=== PATIENT | female | born 1975 | race African-American/Black ===

== ENCOUNTER 2017-08-06 11:07 | Inpatient (IN) | payer OTHER ==
[2017-08-06 13:37] VITALS: BMI 25.0
--- NOTE | 2017-08-06 15:20 | HP ---
COWS - Scale Resting Pulse: 0= [place] 80 or Below Sweatin= Chills/Flushing Restless Observation: 1= Difficult to Sit Still Pupil Size: 0= Normal to Room Light Bone or Joint Aches: 2= Severe Diffuse Aches Runny Nose/ Eye Tearin= Runny Nose/Eyes GI Upset > 30mins: 3= Vomiting/Diarrhea Tremor Observation: 0= None Yawning Observation: 1= 1-2x During Session Anxiety or Irritability: 2=Irritable/Anxious Goose Flesh Skin: 0=Smooth Skin COWS Score: 12 CIWA Score - CIWA Score Nausea/Vomitin Muscle Tremors: 2 Anxiety: 3 Agitation: 2 Paroxysmal Sweats: 3 Orientation: 0-Oriented Tacttile Disturbances: 0-None Auditory Disturbances: 0-None Visual Disturbances: 0-None Headache: 0-None Present CIWA-Ar Total Score: 15 Admission ROS BHS - HPI Chief Complaint: "I need to get better." Patient is here to Detox from Heroin and Alcohol. Allergies/Adverse Reactions: Allergies Allergy/AdvReac Type Severity Reaction Status Date / Time No Known Allergies Allergy Verified 08/06/17 14:56 History of Present Illness: Patient is a 42 YO female here to detox from Heroin and Alcohol. This is patient 's first detox admission at [facility]. Patient had A Detox admission at [facility] ([place] , [place] in 05/2017. Longest period of sobriety non-drug use in recent years: approx. 2 years (2014 - 2016). Exam Limitations: No Limitations - Ebola screening Have you traveled outside of the country in the last 21 days: No (N) Have you had contact with anyone from an Ebola affected area: No Have you been sick,other than usual withdrawal symptoms: No Do you have a fever: No - Review of Systems Constitutional: Chills, Diaphoresis, Fever, Loss of Appetite, Malaise, Night Sweats, Changes in sleep, Unintentional Wgt. Loss (Lost approx. 20 lbs. over last two months.) EENT: reports: No Symptoms Reported Respiratory: reports: No Symptoms reported Cardiac: reports: No Symptoms Reported GI: reports: Diarrhea, Nausea, Poor Appetite, Vomiting, Indigestion : reports: No Symptoms Reported Musculoskeletal: reports: Back Pain Integumentary: reports: No Symptoms Reported Neuro: reports: Tremors Endocrine: reports: No Symptoms Reported Hematology: reports: No Symptoms Reported Psychiatric: reports: Judgement Intact, Mood/Affect Appropiate, Orientated x3, Anxious, Depressed (No Previous Treatment.) Other Systems: Reviewed and Negative Patient History - Patient Medical History Hx Anemia: No Hx Asthma: No Hx Chronic Obstructive Pulmonary Disease (COPD): No Hx Cancer: No Hx Cardiac Disorders: No Hx Congestive Heart Failure: No Hx Hypertension: No Hx Hypercholesterolemia: No Hx Pacemaker: No HX Cerebrovascular Accident: No Hx Seizures: No Hx Dementia: No Hx Diabetes: No Hx Gastrointestinal Disorders: Yes (acid reflux) Hx Liver Disease: No Hx Genitourinary Disorders: No Hx Sexually Transmitted Disorders: No Hx Renal Disease (ESRD): No Hx Thyroid Disease: No Hx Human Immunodeficiency Virus (HIV): Yes (Diagnosed 2006; No meds.) Hx Hepatitis C: Yes (Completed Treatment 2015 (unable to recall name of medication).) Hx Depression: Yes (No Previous treatment.) Hx Suicide Attempt: Yes (pill overdose at age 37; PATIENT DENIES CURRENT SI / HI.) Hx Bipolar Disorder: No Hx Schizophrenia: No Other Medical History: DENIES. - Patient Surgical History Past Surgical History: Yes Hx Neurologic Surgery: No Hx Cataract Extraction: No Hx Cardiac Surgery: No Hx Lung Surgery: No Hx Breast Surgery: No Hx Breast Biopsy: No Hx Abdominal Surgery: No Hx Appendectomy: No Hx Cholecystectomy: No Hx Genitourinary Surgery: No Hx Section: Yes (x2 (1991, 1994).) Hx Orthopedic Surgery: No Hx Hysterectomy: No Other Surgical History: DENIES. Anesthesia Reaction: No - PPD History Previous Implant?: Yes Documented Results: Negative w/o proof Implanted On Prior [facility] Admission?: No PPD to be Administered?: Yes - Reproductive History Patient is a Female of Child Bearing Age (11 -55 yrs old): Yes Last Menstrual Period: 07/03/17 Patient : No - Smoking Cessation Smoking history: Current every day smoker Have you smoked in the past 12 months: Yes Aproximately how many cigarettes per day: 8 Cigars Per Day: 0 Hx Chewing Tobacco Use: No Initiated information on smoking cessation: Yes 'Breaking Loose' booklet given: 08/06/17 (GIVEN TO PATIENT.) - Substance & Tx. History Hx Alcohol Use: Yes Hx Substance Use: Yes Substance Use Type: Alcohol, Cocaine, Heroin Hx Substance Use Treatment: Yes (Previous Detox admssion at [facility] (05/2017).) - Substances Abused Heroin Route: Injection Frequency: Daily Amount used: 5 bags Age of first use: 16 Date of Last Use: 08/06/17 Crack Route: Smoking Frequency: 1-2 times per week Amount used: $100 Age of first use: 12 Date of Last Use: 08/04/17 Alcohol-vodka/beer Route: Oral Frequency: Daily Amount used: 1 pt./2-6 pks. Age of first use: 12 Date of Last Use: 08/05/17 Family Disease History - Family Disease History Family Disease History: Other: Father (, AIDS.), Mother (, AIDS. ) Admission Physical Exam [facility] - Vital Signs Vital Signs: Vital Signs - 24 hr 08/06/17 13:35 Temperature 97.2 F L Pulse Rate 73 Respiratory 20 Rate Blood Pressure 100/60 - Physical General Appearance: Yes: No Apparent Distress, Nourished, Appropriately Dressed , Tremorous, Anxious HEENTM: Yes: Hearing grossly Normal, Normocephalic, Normal Voice, FAR[place]A, Pharynx Normal Respiratory: Yes: Chest Non-Tender, Lungs Clear, No Respiratory Distress, No Accessory Muscle Use Neck: Yes: No masses,lesions,Nodules, Supple, Trachea in good position Breast: Yes: Breast Exam Deferred Cardiology: Yes: Regular Rhythm, Regular Rate, S1, S2 Abdominal: Yes: Normal Bowel Sounds, Non Tender, Flat, Soft Genitourinary: Yes: Within Normal Limits Back: Yes: Decreased Range of Motion Musculoskeletal: Yes: Gait Steady, Back pain Extremities: Yes: Normal Capillary Refill, Normal Range of Motion, Non-Tender, Tremors Neurological: Yes: Fully Oriented, Alert, Normal Mood/Affect, Normal Response Integumentary: Yes: Normal Color, Dry, Warm, Track [place] (Noted on Left Forearm. No signs of infection noted.) Lymphatic: Yes: Within Normal Limits - Diagnostic (1) Opioid dependence with withdrawal Current Visit: Yes Status: Acute (2) Alcohol dependence with uncomplicated withdrawal Current Visit: Yes Status: Acute (3) Cocaine dependence, uncomplicated Current Visit: Yes Status: Acute (4) Nicotine dependence Current Visit: Yes Status: Chronic Qualifiers: Nicotine product type: cigarettes Substance use status: uncomplicated Qualified Code(s): F17.210 - Nicotine dependence, cigarettes, uncomplicated (5) Acid reflux Current Visit: Yes Status: Chronic Qualifiers: Esophagitis presence: esophagitis presence not specified Qualified Code(s) : K21.9 - Gastro-esophageal reflux disease without esophagitis (6) HIV (human immunodeficiency virus infection) Current Visit: Yes Status: Chronic (7) Hepatitis C Current Visit: Yes Status: Resolved Qualifiers: Viral hepatitis chronicity: chronic Hepatic coma status: without hepatic coma Qualified Code(s): B18.2 - Chronic viral hepatitis C Comment: Completed Treatment: 2016. (8) Difficulty sleeping Current Visit: Yes Status: Chronic Cleared for Admission [facility] - Detox or Rehab [facility] Level of Care: Medically Managed Detox Regimen/Protocol: Methadone/Librium [facility] Breath Alcohol Content Breath Alcohol Content: 0 Urine Pregancy Test - Result Urine Test Results: Negative- NO Line Present Urine Drug Screen - Results Drug Screen Negative: No Urine Drug Screen Results: GHULAM-Cocaine, OPI-Opiates, BZO-Benzodiazepines, MTD- Methadone, OXY-Oxycodone
[2017-08-06] MEDS ORDERED: NICOTINE POLACRILEX 2 MG GUM BC PRN (15:44)
[2017-08-06] MEDS ORDERED: chlordiazePOXIDE HCL 25 MG CAPSULE PO ONE (15:44)
[2017-08-06] MEDS ORDERED: P-EPHED 60MG/TRIPROLIDI 2.5MG TABLET PO PRN (15:44)
[2017-08-06] MEDS ORDERED: MAGNESIUM HYDROX 2400MG/30ML ORAL SUSPENSION 30 ML CUP PO PRN (15:44)
[2017-08-06] MEDS ORDERED: MENTHOL/PHENOL 1 EACH UD MM PRN (15:44)
[2017-08-06] MEDS ORDERED: LOPERAMIDE HCL 2 MG CAPSULE PO PRN (15:44)
[2017-08-06] MEDS ORDERED: IBUPROFEN 400 MG TABLET (FP) PO PRN (15:44)
[2017-08-06] MEDS ORDERED: guaiFENesin/D-METHORPHAN HB 10 ML UNIT-DOSE CUPS PO PRN (15:44)
[2017-08-06] MEDS ORDERED: MAG HYDROX/AL HYDROX/SIMETH 30 ML UNIT-DOSE CUP PO PRN (15:44)
[2017-08-06] MEDS ORDERED: MAGNESIUM CITRATE 300 ML BOTTLE PO PRN (15:44)
[2017-08-06] MEDS ORDERED: chlordiazePOXIDE HCL 25 MG CAPSULE PO PRN (15:44)
[2017-08-06] MEDS ORDERED: METHADONE HCL 10 MG TABLET (FOR DETOX USE ONLY) PO ONE ×2 (17:15→23:00)
[2017-08-06] MEDS: chlordiazePOXIDE HCL 25 MG CAPSULE PO SCH ×2 (18:15→22:08)
[2017-08-06] MEDS: NICOTINE 14 MG/24 HOURS TOPICAL PATCH TD SCH (18:16)
[2017-08-06 21:37] LABS: URINE APPEARANCE CLOUDY; URINE BILIRUBIN NEGATIVE (<2.0 mg/dL); URINE BLOOD NEGATIVE (NEGATIVE); URINE COLOR AMBER; URINE GLUCOSE (UA) NEGATIVE (NEGATIVE); URINE KETONE NEGATIVE (NEGATIVE); URINE LEUK ESTERASE NEGATIVE (NEGATIVE); URINE NITRITE NEGATIVE (NEGATIVE); URINE PROTEIN NEGATIVE (NEGATIVE)
[2017-08-06] MEDS: THIAMINE HCL 100 MG TABLET (FP) PO SCH (22:08)
[2017-08-06] MEDS: MELATONIN 5 MG TABLETS PO PRN (22:10)
[2017-08-07] MEDS: chlordiazePOXIDE HCL 25 MG CAPSULE PO SCH ×4 (06:09→22:14)
[2017-08-07] MEDS ORDERED: METHADONE HCL 10 MG TABLET (FOR DETOX USE ONLY) PO SCH (10:00)
[2017-08-07] MEDS: PRENATAL VITAMINS W/ FOLIC ACID TABLET (FP) PO SCH (10:04)
[2017-08-07] MEDS: NICOTINE 14 MG/24 HOURS TOPICAL PATCH TD SCH (10:04)
[2017-08-07 10:40] LABS: ALBUMIN 2.8 g/dl (3.4-5.0); ANION GAP 5 (8-16); BLOOD UREA NITROGEN 6 mg/dL (7-18); CALCIUM 8.3 mg/dL (8.5-10.1); CHLORIDE 111 mmol/L (98-107); CO2 25 mmol/L (21-32); GLUCOSE,RANDOM 94 mg/dL (74-106); HEMATOCRIT 39.3 % (32.4-45.2); HEMOGLOBIN 12.9 GM/dL (10.7-15.3); MCH 31.5 pg (25.7-33.7); MCHC 32.9 g/dl (32.0-36.0); MEAN CELL VOLUME 95.7 fl (80-96); MEAN PLT VOLUME 8.9 fl (7.5-11.1); PLATELET COUNT 163 K/MM3 (134-434); POTASSIUM 3.5 mmol/L (3.5-5.1); RBC 4.11 M/mm3 (3.60-5.2); RDW 16.6 % (11.6-15.6); SODIUM 141 mmol/L (136-145); WHITE BLOOD COUNT 3.4 K/mm3 (4.0-10.0)
[2017-08-07 10:44] LABS: ALK PHOS 78 U/L (45-117); BILIRUBIN,TOTAL 0.5 mg/dL (0.2-1.0); CREATININE 0.8 mg/dL (0.55-1.02); SGOT/AST 15 U/L (15-37); SGPT/ALT 10 U/L (12-78); TOT PROT 6.4 g/dl (6.4-8.2)
--- NOTE | 2017-08-07 11:33 | CONSULT ---
[facility] Psychiatric Consult - Data Date of interview: 08/07/17 Admission source: [facility] Identifying data: Pt. is a 42 year old single female, mother of two, unemployed , living alone and is receiving financial assistance. This is one of multiple admissions for patient. Pt. admitted to for alcohol, cocaine, and opiate dependence. Substance Abuse History: Following information confirmed with Mr. Alonso: Smoking Cessation. Smoking history: Current every day smoker. Have you smoked in the past 12 months: Yes. Aproximately how many cigarettes per day: 8. Cigars Per Day: 0. Hx Chewing Tobacco Use: No. Initiated information on smoking cessation: Yes. 'Breaking Loose' booklet given: 08/06/17 (GIVEN TO PATIENT.). - Substance & Tx. History. Hx Alcohol Use: Yes. Hx Substance Use: Yes. Substance Use Type: Alcohol, Cocaine, Heroin. Hx Substance Use Treatment : Yes (Previous Detox admssion at [facility] (05/2017).). - Substances Abused. Heroin. Route: Injection. Frequency: Daily. Amount used: 5 bags. Age of first use: 16. Date of Last Use: 08/06/17. Crack. Route: Smoking. Frequency: 1-2 times per week. Amount used: $100. Age of first use: 12. Date of Last Use: 08/04/17. Alcohol-vodka/beer. Route: Oral. Frequency: Daily. Amount used: 1 pt./2-6 pks. Age of first use: 12. Date of Last Use: 08/05/17 Medical History: HIV Psychiatric History: Pt. presents as guarded and is not fourthcoming with information. Pt. reports multiple psychiatric hospitalizations, most recently five years ago at [facility]. Reports last seeing an outpatient psychiatrist one year ago (unable to recall location or clinic's name).Pt. reports a diagnosis of bipolar disorder and depression. States she has been prescribed mirtzapine (unaware of dose) and risperdal 3mg. As per pharmacy claims patient received a prescription of risperdal 3mg + Mirtzapine 45mg + wellbutrin 100mg on 08/03/17. Pt. reports nonadherence to medications and outpatient care. Pt. reports one suicide attempt five years via overdose. Pt. currently denies suicidal and homicidal ideation. Physical/Sexual Abuse/Trauma History: Denies. Mental Status Exam - Mental Status Exam Alert and Oriented to: Time, Place, Person Cognitive Function: Good Patient Appearance: Well Groomed Mood: Euthymic Affect: Mood Congruent Patient Behavior: Guarded, Cooperative Speech Pattern: Delayed Voice Loudness: Normal Thought Process: Goal Oriented Thought Disorder: Not Present Hallucinations: Denies Suicidal Ideation: Denies Homicidal Ideation: Denies Insight/Judgement: Poor Sleep: Fair Appetite: Fair Muscle strength/Tone: Normal Gait/Station: Normal Psychiatric Findings - Problem List ([place] 1, 2,3) (1) Alcohol dependence with uncomplicated withdrawal Current Visit: Yes Status: Acute (2) Cocaine dependence, uncomplicated Current Visit: Yes Status: Acute (3) Opioid dependence with withdrawal Current Visit: Yes Status: Acute (4) Nicotine dependence Current Visit: Yes Status: Chronic Qualifiers: Nicotine product type: cigarettes Substance use status: uncomplicated Qualified Code(s): F17.210 - Nicotine dependence, cigarettes, uncomplicated (5) Bipolar disorder Current Visit: Yes Status: Chronic Comment: History. (6) Substance induced mood disorder Current Visit: Yes Status: Acute - Initial Treatment Plan Initial Treatment Plan: Psychoeducation provided. Detoxification provided. Pt. agreeable to restarting risperdal + Mirtzapine. Risperdal 1mg BID + Mirtazapine 15mg qhs ordered. Benefits and side effects discussed. Verbal consent given. Will continue to monitor.
--- NOTE | 2017-08-07 15:37 | PN ---
S CIWA - CIWA Score Nausea/Vomitin Muscle Tremors: 3 Anxiety: 3 Agitation: 3 Paroxysmal Sweats: 1-Minimal Palms Moist Orientation: 0-Oriented Tacttile Disturbances: 1-Very Mild Itch/Numbness Auditory Disturbances: 1-Very Mild Visual Disturbances: 0-None Headache: 2-Mild CIWA-Ar Total Score: 17 BHS COWS - Scale Resting Pulse: 0= [place] 80 or Below Sweatin= Chills/Flushing Restless Observation: 3= Extraneous Movement Pupil Size: 1= Pupils >than Normal Bone or Joint Aches: 2= Severe Diffuse Aches Runny Nose/ Eye Tearin= Runny Nose/Eyes GI Upset > 30mins: 2= Nausea/Diarrhea Tremor Observation of Outstretched Hands: 2= Slight Tremor Visible Yawning Observation: 2= >3x During Session Anxiety or Irritability: 2=Irritable/Anxious Goose Flesh Skin: 0=Smooth Skin COWS Score: 17 S Progress Note (SOAP) Subjective: ALERT,IRRITABLE,ANXIOUS,INTERRUPTED SLEP,TREMOR,PAIN IN THE BODY AND BACK Objective: 08/07/17 15:35 Vital Signs Temperature 98.6 F 08/07/17 11:09 Pulse Rate 74 08/07/17 11:09 Respiratory Rate 18 08/07/17 11:09 Blood Pressure 119/75 08/07/17 11:09 O2 Sat by Pulse Oximetry (%) 08/07/17 15:36 Laboratory Last Values WBC 3.4 K/mm3 (4.0-10.0) L 08/07/17 07:50 RBC 4.11 M/mm3 (3.60-5.2) 08/07/17 07:50 Hgb 12.9 GM/dL (10.7-15.3) 08/07/17 07:50 Hct 39.3 % (32.4-45.2) 08/07/17 07:50 MCV 95.7 fl (80-96) 08/07/17 07:50 MCH 31.5 pg (25.7-33.7) 08/07/17 07:50 MCHC 32.9 g/dl (32.0-36.0) 08/07/17 07:50 RDW 16.6 % (11.6-15.6) H 08/07/17 07:50 Plt Count 163 K/MM3 (134-434) 08/07/17 07:50 MPV 8.9 fl (7.5-11.1) 08/07/17 07:50 Sodium 141 mmol/L (136-145) 08/07/17 07:50 Potassium 3.5 mmol/L (3.5-5.1) 08/07/17 07:50 Chloride 111 mmol/L (98-107) H 08/07/17 07:50 Carbon Dioxide 25 mmol/L (21-32) 08/07/17 07:50 Anion Gap 5 (8-16) L 08/07/17 07:50 BUN 6 mg/dL (7-18) L 08/07/17 07:50 Creatinine 0.8 mg/dL (0.55-1.02) 08/07/17 07:50 Creat Clearance w eGFR > 60 (>60) 08/07/17 07:50 Random Glucose 94 mg/dL (74-106) 08/07/17 07:50 Calcium 8.3 mg/dL (8.5-10.1) L 08/07/17 07:50 Total Bilirubin 0.5 mg/dL (0.2-1.0) 08/07/17 07:50 AST 15 U/L (15-37) 08/07/17 07:50 ALT 10 U/L (12-78) L 08/07/17 07:50 Alkaline Phosphatase 78 U/L (45-117) 08/07/17 07:50 Total Protein 6.4 g/dl (6.4-8.2) 08/07/17 07:50 Albumin 2.8 g/dl (3.4-5.0) L 08/07/17 07:50 Urine Color Tere 08/06/17 18:40 Urine Appearance Cloudy 08/06/17 18:40 Urine pH 5.0 (5.0-8.0) 08/06/17 18:40 Ur Specific [place] 1.019 (1.001-1.035) 08/06/17 18:40 Urine Protein Negative (NEGATIVE) 08/06/17 18:40 Urine Glucose (UA) Negative (NEGATIVE) 08/06/17 18:40 Urine Ketones Negative (NEGATIVE) 08/06/17 18:40 Urine Blood Negative (NEGATIVE) 08/06/17 18:40 Urine Nitrite Negative (NEGATIVE) 08/06/17 18:40 Urine Bilirubin Negative (<2.0 mg/dL) 08/06/17 18:40 Urine Urobilinogen 2.0 mg/dL (0.2-1.0) H 08/06/17 18:40 Ur Leukocyte Esterase Negative (NEGATIVE) 08/06/17 18:40 RPR Titer Nonreactive (NONREACTIVE) 08/07/17 07:50 Assessment: 08/07/17 15:35 Vital Signs Temperature 98.6 F 08/07/17 11:09 Pulse Rate 74 08/07/17 11:09 Respiratory Rate 18 08/07/17 11:09 Blood Pressure 119/75 08/07/17 11:09 O2 Sat by Pulse Oximetry (%) EKG NSR NO CHEST PAIN,NO SOB,NO DIZZINESS 08/07/17 15:36 WITHDRAWAL SYMPTOM Plan: CONTINUE DETOX
[2017-08-07] MEDS: THIAMINE HCL 100 MG TABLET (FP) PO SCH (22:14)
[2017-08-07] MEDS: MIRTAZAPINE 15 MG TABLET (FP) PO SCH (22:14)
[2017-08-07] MEDS: risperiDONE 1 MG TABLET (FP) PO SCH (22:14)
[2017-08-07] MEDS: MELATONIN 5 MG TABLETS PO PRN (22:15)
[2017-08-07] MEDS: ACETAMINOPHEN 325 MG TABLET (FP) PO PRN (22:42)
[2017-08-08] MEDS: chlordiazePOXIDE HCL 25 MG CAPSULE PO SCH ×2 (05:52→10:59)
[2017-08-08] MEDS: ACETAMINOPHEN 325 MG TABLET (FP) PO PRN (05:53)
[2017-08-08] MEDS: NICOTINE 14 MG/24 HOURS TOPICAL PATCH TD SCH (10:59)
[2017-08-08] MEDS: PRENATAL VITAMINS W/ FOLIC ACID TABLET (FP) PO SCH (11:00)
[2017-08-08] MEDS: METHADONE HCL 5 MG TABLET (FOR DETOX USE ONLY) PO SCH (11:00)
[2017-08-08] MEDS: risperiDONE 1 MG TABLET (FP) PO SCH ×2 (11:00→22:26)
--- NOTE | 2017-08-08 12:33 | PN ---
[facility] CIWA - CIWA Score Nausea/Vomitin-Mild Nausea/No Vomiting Muscle Tremors: 4-Moderate,w/Arms Extend Anxiety: 3 Agitation: 3 Paroxysmal Sweats: 1-Minimal Palms Moist Orientation: 0-Oriented Tacttile Disturbances: 1-Very Mild Itch/Numbness Auditory Disturbances: 0-None Visual Disturbances: 0-None Headache: 1-Very Mild CIWA-Ar Total Score: 14 BHS COWS - Scale Resting Pulse: 0= [place] 80 or Below Sweatin= Chills/Flushing Restless Observation: 1= Difficult to Sit Still Pupil Size: 0= Normal to Room Light Bone or Joint Aches: 2= Severe Diffuse Aches Runny Nose/ Eye Tearin= Nasal Congestion GI Upset > 30mins: 2= Nausea/Diarrhea Tremor Observation of Outstretched Hands: 2= Slight Tremor Visible Yawning Observation: 2= >3x During Session Anxiety or Irritability: 2=Irritable/Anxious Goose Flesh Skin: 0=Smooth Skin COWS Score: 13 S Progress Note (SOAP) Subjective: sweat tremor restlessness body ache joint pain trouble sleeping mild gi distress Objective: 08/08/17 12:32 Vital Signs Temperature 98.1 F 08/08/17 12:13 Pulse Rate 77 08/08/17 12:13 Respiratory Rate 20 08/08/17 12:13 Blood Pressure 112/79 08/08/17 12:13 O2 Sat by Pulse Oximetry (%) Laboratory Last Values WBC 3.4 K/mm3 (4.0-10.0) L 08/07/17 07:50 RBC 4.11 M/mm3 (3.60-5.2) 08/07/17 07:50 Hgb 12.9 GM/dL (10.7-15.3) 08/07/17 07:50 Hct 39.3 % (32.4-45.2) 08/07/17 07:50 MCV 95.7 fl (80-96) 08/07/17 07:50 MCH 31.5 pg (25.7-33.7) 08/07/17 07:50 MCHC 32.9 g/dl (32.0-36.0) 08/07/17 07:50 RDW 16.6 % (11.6-15.6) H 08/07/17 07:50 Plt Count 163 K/MM3 (134-434) 08/07/17 07:50 MPV 8.9 fl (7.5-11.1) 08/07/17 07:50 Sodium 141 mmol/L (136-145) 08/07/17 07:50 Potassium 3.5 mmol/L (3.5-5.1) 08/07/17 07:50 Chloride 111 mmol/L (98-107) H 08/07/17 07:50 Carbon Dioxide 25 mmol/L (21-32) 08/07/17 07:50 Anion Gap 5 (8-16) L 08/07/17 07:50 BUN 6 mg/dL (7-18) L 08/07/17 07:50 Creatinine 0.8 mg/dL (0.55-1.02) 08/07/17 07:50 Creat Clearance w eGFR > 60 (>60) 08/07/17 07:50 Random Glucose 94 mg/dL (74-106) 08/07/17 07:50 Calcium 8.3 mg/dL (8.5-10.1) L 08/07/17 07:50 Total Bilirubin 0.5 mg/dL (0.2-1.0) 08/07/17 07:50 AST 15 U/L (15-37) 08/07/17 07:50 ALT 10 U/L (12-78) L 08/07/17 07:50 Alkaline Phosphatase 78 U/L (45-117) 08/07/17 07:50 Total Protein 6.4 g/dl (6.4-8.2) 08/07/17 07:50 Albumin 2.8 g/dl (3.4-5.0) L 08/07/17 07:50 Urine Color Tere 08/06/17 18:40 Urine Appearance Cloudy 08/06/17 18:40 Urine pH 5.0 (5.0-8.0) 08/06/17 18:40 Ur Specific [place] 1.019 (1.001-1.035) 08/06/17 18:40 Urine Protein Negative (NEGATIVE) 08/06/17 18:40 Urine Glucose (UA) Negative (NEGATIVE) 08/06/17 18:40 Urine Ketones Negative (NEGATIVE) 08/06/17 18:40 Urine Blood Negative (NEGATIVE) 08/06/17 18:40 Urine Nitrite Negative (NEGATIVE) 08/06/17 18:40 Urine Bilirubin Negative (<2.0 mg/dL) 08/06/17 18:40 Urine Urobilinogen 2.0 mg/dL (0.2-1.0) H 08/06/17 18:40 Ur Leukocyte Esterase Negative (NEGATIVE) 08/06/17 18:40 RPR Titer Nonreactive (NONREACTIVE) 08/07/17 07:50 lab noted Assessment: 08/08/17 12:33 withdrawal sx Plan: continue detox
[2017-08-08] MEDS: chlordiazePOXIDE 5 MG CAPSULE PO SCH ×2 (17:42→22:26)
[2017-08-08] MEDS: THIAMINE HCL 100 MG TABLET (FP) PO SCH (22:25)
[2017-08-08] MEDS: MIRTAZAPINE 15 MG TABLET (FP) PO SCH (22:26)
[2017-08-09] MEDS: chlordiazePOXIDE 5 MG CAPSULE PO SCH ×2 (05:21→10:23)
[2017-08-09] MEDS: PRENATAL VITAMINS W/ FOLIC ACID TABLET (FP) PO SCH (10:22)
[2017-08-09] MEDS: METHADONE HCL 5 MG TABLET (FOR DETOX USE ONLY) PO SCH (10:23)
[2017-08-09] MEDS: risperiDONE 1 MG TABLET (FP) PO SCH ×2 (10:23→22:18)
[2017-08-09] MEDS: NICOTINE 14 MG/24 HOURS TOPICAL PATCH TD SCH (10:25)
--- NOTE | 2017-08-09 12:28 | PN ---
BHS Progress Note (SOAP) Subjective: Backache sleep disturbance nasal congestion Objective: 08/09/17 12:25 A & O x 3 Sleeping but arousable to verbal stimuli Vital Signs Temperature 97.7 F 08/09/17 10:19 Pulse Rate 80 08/09/17 10:19 Respiratory Rate 18 08/09/17 10:19 Blood Pressure 110/85 08/09/17 10:19 O2 Sat by Pulse Oximetry (%) Assessment: 08/09/17 12:27 withdrawal sx Plan: continue detox
--- NOTE | 2017-08-09 12:43 | EKG ---
Test Reason : Blood Pressure : / mmHG Vent. Rate : 075 BPM Atrial Rate : 075 BPM P-R Int : 180 ms QRS Dur : 090 ms QT Int : 422 ms P-R-T Axes : 056 035 040 degrees QTc Int : 471 ms NORMAL SINUS RHYTHM POSSIBLE LEFT ATRIAL ENLARGEMENT BORDERLINE ECG NO PREVIOUS ECGS AVAILABLE Confirmed by CHI PETER MD ([id number]) on 08/09/2017 12:43:20 PM Referred By: Confirmed By:CHI PETER MD
[2017-08-09] MEDS: chlordiazePOXIDE HCL 10 MG CAPSULE PO SCH ×2 (17:11→22:18)
[2017-08-09] MEDS: THIAMINE HCL 100 MG TABLET (FP) PO SCH (22:18)
[2017-08-09] MEDS: MIRTAZAPINE 15 MG TABLET (FP) PO SCH (22:18)
[2017-08-10] MEDS: chlordiazePOXIDE HCL 10 MG CAPSULE PO SCH ×2 (05:56→10:05)
[2017-08-10] MEDS ORDERED: METHADONE HCL 10 MG TABLET (FOR DETOX USE ONLY) PO SCH (10:00)
[2017-08-10] MEDS: NICOTINE 14 MG/24 HOURS TOPICAL PATCH TD SCH (10:05)
[2017-08-10] MEDS: risperiDONE 1 MG TABLET (FP) PO SCH ×2 (10:05→22:26)
[2017-08-10] MEDS: PRENATAL VITAMINS W/ FOLIC ACID TABLET (FP) PO SCH (10:05)
--- NOTE | 2017-08-10 12:05 | PN ---
BHS Progress Note (SOAP) Subjective: feeling better no tremor less sweat no gi distress Objective: 08/10/17 12:04 Vital Signs Temperature 97.7 F 08/10/17 10:19 Pulse Rate 87 08/10/17 10:19 Respiratory Rate 16 08/10/17 10:19 Blood Pressure 121/74 08/10/17 10:19 O2 Sat by Pulse Oximetry (%) Laboratory Last Values WBC 3.4 K/mm3 (4.0-10.0) L 08/07/17 07:50 RBC 4.11 M/mm3 (3.60-5.2) 08/07/17 07:50 Hgb 12.9 GM/dL (10.7-15.3) 08/07/17 07:50 Hct 39.3 % (32.4-45.2) 08/07/17 07:50 MCV 95.7 fl (80-96) 08/07/17 07:50 MCH 31.5 pg (25.7-33.7) 08/07/17 07:50 MCHC 32.9 g/dl (32.0-36.0) 08/07/17 07:50 RDW 16.6 % (11.6-15.6) H 08/07/17 07:50 Plt Count 163 K/MM3 (134-434) 08/07/17 07:50 MPV 8.9 fl (7.5-11.1) 08/07/17 07:50 Sodium 141 mmol/L (136-145) 08/07/17 07:50 Potassium 3.5 mmol/L (3.5-5.1) 08/07/17 07:50 Chloride 111 mmol/L (98-107) H 08/07/17 07:50 Carbon Dioxide 25 mmol/L (21-32) 08/07/17 07:50 Anion Gap 5 (8-16) L 08/07/17 07:50 BUN 6 mg/dL (7-18) L 08/07/17 07:50 Creatinine 0.8 mg/dL (0.55-1.02) 08/07/17 07:50 Creat Clearance w eGFR > 60 (>60) 08/07/17 07:50 Random Glucose 94 mg/dL (74-106) 08/07/17 07:50 Calcium 8.3 mg/dL (8.5-10.1) L 08/07/17 07:50 Total Bilirubin 0.5 mg/dL (0.2-1.0) 08/07/17 07:50 AST 15 U/L (15-37) 08/07/17 07:50 ALT 10 U/L (12-78) L 08/07/17 07:50 Alkaline Phosphatase 78 U/L (45-117) 08/07/17 07:50 Total Protein 6.4 g/dl (6.4-8.2) 08/07/17 07:50 Albumin 2.8 g/dl (3.4-5.0) L 08/07/17 07:50 Urine Color Tere 08/06/17 18:40 Urine Appearance Cloudy 08/06/17 18:40 Urine pH 5.0 (5.0-8.0) 08/06/17 18:40 Ur Specific [place] 1.019 (1.001-1.035) 08/06/17 18:40 Urine Protein Negative (NEGATIVE) 08/06/17 18:40 Urine Glucose (UA) Negative (NEGATIVE) 08/06/17 18:40 Urine Ketones Negative (NEGATIVE) 08/06/17 18:40 Urine Blood Negative (NEGATIVE) 08/06/17 18:40 Urine Nitrite Negative (NEGATIVE) 08/06/17 18:40 Urine Bilirubin Negative (<2.0 mg/dL) 08/06/17 18:40 Urine Urobilinogen 2.0 mg/dL (0.2-1.0) H 08/06/17 18:40 Ur Leukocyte Esterase Negative (NEGATIVE) 08/06/17 18:40 RPR Titer Nonreactive (NONREACTIVE) 08/07/17 07:50 lab noted Assessment: 08/10/17 12:04 mild withdrawal sx Plan: medically supervised detox
[2017-08-10] MEDS: THIAMINE HCL 100 MG TABLET (FP) PO SCH (22:26)
[2017-08-10] MEDS: MIRTAZAPINE 15 MG TABLET (FP) PO SCH (22:26)
[2017-08-11] MEDS ORDERED: METHADONE HCL 5 MG TABLET (FOR DETOX USE ONLY) PO SCH (06:00)
[2017-08-11 06:26] VITALS: BP 101/61; PULSE 86; TEMP 97.7
--- NOTE | 2017-08-11 09:08 | DS ---
[facility] Detox Discharge Summary Admission Date: 08/06/17 Discharge Date: 08/11/17 - History Present History: Alcohol Dependence, Opioid Dependence Additional Comments: 42 years old female admitted on 08/06/17 for alcohol and opioid detox completed detox regimen tolerated well denies alcohol and opioid withdrawal sx denies suicidal denies homocidal no self destructive behavior noted patient is alert oriented x 3 no acute distress wants to go to [facility] for rehab as per counselor arranged - Physical Exam Results Vital Signs: Vital Signs Temperature 97.7 F 08/11/17 06:00 Pulse Rate 86 08/11/17 06:00 Respiratory Rate 18 08/11/17 06:00 Blood Pressure 101/61 08/11/17 06:00 O2 Sat by Pulse Oximetry (%) Pertinent Admission Physical Exam Findings: withdrawal sx Vital Signs Temperature 97.7 F 08/11/17 06:00 Pulse Rate 86 08/11/17 06:00 Respiratory Rate 18 08/11/17 06:00 Blood Pressure 101/61 08/11/17 06:00 O2 Sat by Pulse Oximetry (%) Laboratory Last Values WBC 3.4 K/mm3 (4.0-10.0) L 08/07/17 07:50 RBC 4.11 M/mm3 (3.60-5.2) 08/07/17 07:50 Hgb 12.9 GM/dL (10.7-15.3) 08/07/17 07:50 Hct 39.3 % (32.4-45.2) 08/07/17 07:50 MCV 95.7 fl (80-96) 08/07/17 07:50 MCH 31.5 pg (25.7-33.7) 08/07/17 07:50 MCHC 32.9 g/dl (32.0-36.0) 08/07/17 07:50 RDW 16.6 % (11.6-15.6) H 08/07/17 07:50 Plt Count 163 K/MM3 (134-434) 08/07/17 07:50 MPV 8.9 fl (7.5-11.1) 08/07/17 07:50 Sodium 141 mmol/L (136-145) 08/07/17 07:50 Potassium 3.5 mmol/L (3.5-5.1) 08/07/17 07:50 Chloride 111 mmol/L (98-107) H 08/07/17 07:50 Carbon Dioxide 25 mmol/L (21-32) 08/07/17 07:50 Anion Gap 5 (8-16) L 08/07/17 07:50 BUN 6 mg/dL (7-18) L 08/07/17 07:50 Creatinine 0.8 mg/dL (0.55-1.02) 08/07/17 07:50 Creat Clearance w eGFR > 60 (>60) 08/07/17 07:50 Random Glucose 94 mg/dL (74-106) 08/07/17 07:50 Calcium 8.3 mg/dL (8.5-10.1) L 08/07/17 07:50 Total Bilirubin 0.5 mg/dL (0.2-1.0) 08/07/17 07:50 AST 15 U/L (15-37) 08/07/17 07:50 ALT 10 U/L (12-78) L 08/07/17 07:50 Alkaline Phosphatase 78 U/L (45-117) 08/07/17 07:50 Total Protein 6.4 g/dl (6.4-8.2) 08/07/17 07:50 Albumin 2.8 g/dl (3.4-5.0) L 08/07/17 07:50 Urine Color Tere 08/06/17 18:40 Urine Appearance Cloudy 08/06/17 18:40 Urine pH 5.0 (5.0-8.0) 08/06/17 18:40 Ur Specific [place] 1.019 (1.001-1.035) 08/06/17 18:40 Urine Protein Negative (NEGATIVE) 08/06/17 18:40 Urine Glucose (UA) Negative (NEGATIVE) 08/06/17 18:40 Urine Ketones Negative (NEGATIVE) 08/06/17 18:40 Urine Blood Negative (NEGATIVE) 08/06/17 18:40 Urine Nitrite Negative (NEGATIVE) 08/06/17 18:40 Urine Bilirubin Negative (<2.0 mg/dL) 08/06/17 18:40 Urine Urobilinogen 2.0 mg/dL (0.2-1.0) H 08/06/17 18:40 Ur Leukocyte Esterase Negative (NEGATIVE) 08/06/17 18:40 RPR Titer Nonreactive (NONREACTIVE) 08/07/17 07:50 lab noted - Treatment Hospital Course: Detox Protocol Followed, Detoxed Safely, Responded well, Discharged Condition Good, Rehab Referral Accepted Patient has Accepted a Rehab Referral to[facility] - Medication Discharge Medications: Ambulatory Orders Mirtazapine [Remeron -] 45 mg PO 08/07/17 Risperidone [Risperdal] 3 mg PO 08/07/17 Mirtazapine [Remeron -] 15 mg PO HS #30 tablet 08/10/17 Risperidone [Risperdal -] 1 mg PO BID #60 tablet 08/10/17 - Diagnosis (1) Alcohol dependence with uncomplicated withdrawal Current Visit: Yes Status: Acute (2) Opioid dependence with withdrawal Current Visit: Yes Status: Acute (3) Substance induced mood disorder Current Visit: Yes Status: Suspected (4) HIV (human immunodeficiency virus infection) Current Visit: Yes Status: Chronic (5) Nicotine dependence Current Visit: Yes Status: Acute Qualifiers: Nicotine product type: cigarettes Substance use status: in withdrawal Qualified Code(s): F17.213 - Nicotine dependence, cigarettes, with withdrawal (6) Hepatitis C Current Visit: Yes Status: Resolved Qualifiers: Viral hepatitis chronicity: chronic Hepatic coma status: without hepatic coma Qualified Code(s): B18.2 - Chronic viral hepatitis C - AMA Did Patient Leave Against Medical Advice: No
== END 2017-08-11 08:58 | disposition home or self-care (01) | DRG 773 ==
LOC: YASAS 11:07 → Y6N 15:15
PROVIDERS: ADMIT Internal Medicine; ATTEND Internal Medicine
PROC: HZ2ZZZZ Detoxification Services for Substance Abuse Treatment (ICD-10-PCS; principal; 2017-08-06)
DX: F11.23 Opioid dependence with withdrawal (principal); F10.230 Alcohol dependence with withdrawal, uncomplicated; F14.20 Cocaine dependence, uncomplicated; F17.210 Nicotine dependence, cigarettes, uncomplicated; F19.24 Other psychoactive substance dependence with psychoactive substance-induced mood disorder; F31.9 Bipolar disorder, unspecified; B18.2 Chronic viral hepatitis C; Z21 Asymptomatic human immunodeficiency virus [HIV] infection status; G47.9 Sleep disorder, unspecified; R63.4 Abnormal weight loss; Z68.25 Body mass index [BMI] 25.0-25.9, adult; Z91.5 Personal history of self-harm
CPT/HCPCS: 36415; 80053; 81003; 85027; 86593; 93005; 93010; J2794

== ENCOUNTER 2020-09-06 11:33 | Inpatient (IN) | payer OTHER ==
[2020-09-06] MEDS ORDERED: cloNIDine HCL 0.1 MG TABLET PO PRN (13:56)
[2020-09-06] MEDS ORDERED: ACETAMINOPHEN 325 MG TABLET (FP) PO PRN ×2 (13:56)
[2020-09-06] MEDS ORDERED: MAG HYDROX/AL HYDROX/SIMETH 30 ML UNIT-DOSE CUP PO PRN (13:56)
[2020-09-06] MEDS ORDERED: MAGNESIUM CITRATE 300 ML BOTTLE PO PRN (13:56)
[2020-09-06] MEDS ORDERED: diazePAM 5 MG TABLET PO PRN (13:56)
[2020-09-06] MEDS ORDERED: IBUPROFEN 400 MG TABLET (FP) PO PRN (13:56)
[2020-09-06] MEDS ORDERED: MAGNESIUM HYDROX 2400MG/30ML ORAL SUSPENSION 30 ML CUP PO PRN (13:56)
[2020-09-06] MEDS ORDERED: ONDANSETRON *ODT* 4 MG TABLET SL PRN (13:56)
[2020-09-06] MEDS ORDERED: BISMUTH SUBSALICYLATE 524 MG/30 ML UD PO PRN (13:56)
[2020-09-06] MEDS ORDERED: NICOTINE POLACRILEX 2 MG GUM BUC PRN (13:56)
[2020-09-06 14:13] VITALS: BMI 19.3
[2020-09-06] MEDS ORDERED: METHADONE HCL 10 MG TABLET (FOR DETOX USE ONLY) PO ONE (15:30)
[2020-09-06] MEDS ORDERED: diazePAM 5 MG TABLET ONE (18:06)
[2020-09-06] MEDS ORDERED: METHADONE HCL 10 MG TABLET (FOR DETOX USE ONLY) ONE (18:06)
[2020-09-06] MEDS: diazePAM 5 MG TABLET PO SCH ×3 (18:10→22:54)
[2020-09-06] MEDS ORDERED: hydrOXYzine PAMOATE 25 MG CAPSULE (FP) PO ONE (19:44)
[2020-09-06] MEDS: hydrOXYzine PAMOATE 25 MG CAPSULE (FP) PO SCH ×3 (19:52→23:26)
[2020-09-06] MEDS: MELATONIN 5 MG TABLETS PO SCH (22:54)
[2020-09-06] MEDS: THIAMINE HCL 100 MG TABLET (FP) PO SCH (22:54)
[2020-09-06] MEDS: PRENATAL VITAMINS W/ FOLIC ACID TABLET (FP) PO SCH (22:55)
[2020-09-07] MEDS: diazePAM 5 MG TABLET PO SCH ×4 (05:58→22:52)
[2020-09-07] MEDS: hydrOXYzine PAMOATE 25 MG CAPSULE (FP) PO SCH ×5 (05:58→22:52)
[2020-09-07] MEDS ORDERED: METHADONE (DETOX) 20 MG, METHADONE (DETOX) 5 MG PO ONE (10:00)
[2020-09-07] MEDS ORDERED: METHADONE HCL 5 MG TABLET (FOR DETOX USE ONLY) ONE (10:39)
[2020-09-07] MEDS ORDERED: METHADONE HCL 10 MG TABLET (FOR DETOX USE ONLY) ONE (10:39)
[2020-09-07] MEDS: NICOTINE 14 MG/24 HOURS TOPICAL PATCH TD SCH (10:40)
[2020-09-07] MEDS: PRENATAL VITAMINS W/ FOLIC ACID TABLET (FP) PO SCH (10:40)
[2020-09-07 12:20] LABS: HEMATOCRIT 42.8 % (32.4-45.2); MCH 36.1 pg (25.7-33.7); MCHC 35.1 g/dl (32.0-36.0); MEAN CELL VOLUME 102.9 fl (80-96); MEAN PLT VOLUME 9.2 fl (7.5-11.1); PLATELET COUNT 183 K/MM3 (134-434); RBC 4.16 M/mm3 (3.60-5.2); RDW 12.9 % (11.6-15.6); WHITE BLOOD COUNT 3.1 K/mm3 (4.0-10.0)
[2020-09-07 12:23] LABS: CALCIUM 8.9 mg/dL (8.5-10.1)
[2020-09-07 12:24] LABS: ALBUMIN 3.5 g/dl (3.4-5.0); BLOOD UREA NITROGEN 7.9 mg/dL (7-18)
[2020-09-07 12:26] LABS: BILIRUBIN,TOTAL 0.5 mg/dL (0.2-1)
[2020-09-07 12:27] LABS: CREATININE 0.8 mg/dL (0.55-1.3); TOT PROT 7.6 g/dl (6.4-8.2)
[2020-09-07] MEDS: METHOCARBAMOL 500 MG TABLET PO PRN (17:33)
[2020-09-07] MEDS: THIAMINE HCL 100 MG TABLET (FP) PO SCH (22:52)
[2020-09-07] MEDS: MELATONIN 5 MG TABLETS PO SCH (22:52)
[2020-09-08] MEDS: diazePAM 5 MG TABLET PO SCH ×3 (05:59→22:18)
[2020-09-08] MEDS: hydrOXYzine PAMOATE 25 MG CAPSULE (FP) PO SCH ×5 (05:59→23:32)
[2020-09-08] MEDS: METHOCARBAMOL 500 MG TABLET PO PRN ×2 (06:00→14:10)
[2020-09-08] MEDS ORDERED: METHADONE HCL 10 MG TABLET (FOR DETOX USE ONLY) PO ONE (10:00)
[2020-09-08] MEDS: PRENATAL VITAMINS W/ FOLIC ACID TABLET (FP) PO SCH (10:28)
[2020-09-08] MEDS: NICOTINE 14 MG/24 HOURS TOPICAL PATCH TD SCH (11:09)
[2020-09-08] MEDS: THIAMINE HCL 100 MG TABLET (FP) PO SCH (22:18)
[2020-09-08] MEDS: MELATONIN 5 MG TABLETS PO SCH (22:18)
[2020-09-09] MEDS: MENTHOL/PHENOL 1 EACH UD MM PRN ×2 (00:32→05:59)
[2020-09-09] MEDS: diazePAM 5 MG TABLET PO SCH ×2 (05:55→17:09)
[2020-09-09] MEDS: hydrOXYzine PAMOATE 25 MG CAPSULE (FP) PO SCH ×5 (05:55→22:22)
[2020-09-09] MEDS: METHOCARBAMOL 500 MG TABLET PO PRN (05:57)
[2020-09-09] MEDS ORDERED: METHADONE HCL 5 MG TABLET (FOR DETOX USE ONLY) ONE (08:52)
[2020-09-09] MEDS ORDERED: METHADONE HCL 10 MG TABLET (FOR DETOX USE ONLY) ONE (08:52)
[2020-09-09] MEDS: NICOTINE 14 MG/24 HOURS TOPICAL PATCH TD SCH (09:50)
[2020-09-09] MEDS: PRENATAL VITAMINS W/ FOLIC ACID TABLET (FP) PO SCH (09:53)
[2020-09-09] MEDS ORDERED: METHADONE (DETOX) 10 MG, METHADONE (DETOX) 5 MG PO ONE (10:00)
[2020-09-09] MEDS: MELATONIN 5 MG TABLETS PO SCH (22:22)
[2020-09-09] MEDS: THIAMINE HCL 100 MG TABLET (FP) PO SCH (22:22)
[2020-09-10] MEDS ORDERED: diazePAM 5 MG TABLET PO ONE (06:00)
[2020-09-10] MEDS: hydrOXYzine PAMOATE 25 MG CAPSULE (FP) PO SCH (06:04)
[2020-09-10 09:00] VITALS: BP 101/70; PULSE 78; TEMP 98.1
[2020-09-10] MEDS ORDERED: hydrOXYzine PAMOATE 25 MG CAPSULE (FP) PO PRN (09:12)
[2020-09-10] MEDS: PRENATAL VITAMINS W/ FOLIC ACID TABLET (FP) PO SCH (09:32)
[2020-09-10] MEDS: NICOTINE 14 MG/24 HOURS TOPICAL PATCH TD SCH (09:33)
[2020-09-10] MEDS: METHOCARBAMOL 500 MG TABLET PO PRN (09:34)
[2020-09-10] MEDS ORDERED: LIDOCAINE 5% TOPICAL PATCH TP SCH (10:00)
[2020-09-10] MEDS ORDERED: METHADONE HCL 10 MG TABLET (FOR DETOX USE ONLY) PO ONE (10:00)
[2020-09-10 13:02] LABS: SARS-CoV-2 NAA Not Detected
[2020-09-10] MEDS ORDERED: LIDOCAINE PATCH REMOVAL MC SCH (22:00)
[2020-09-11] MEDS ORDERED: METHADONE HCL 5 MG TABLET (FOR DETOX USE ONLY) PO ONE (06:00)
== END 2020-09-10 11:46 | disposition home or self-care (01) | DRG 773 ==
LOC: YASAS 11:33 → Y3N 17:57
PROVIDERS: ADMIT Allergy & Immunology; ATTEND Allergy & Immunology
PROC: HZ2ZZZZ Detoxification Services for Substance Abuse Treatment (ICD-10-PCS; principal; 2020-09-06)
DX: F10.230 Alcohol dependence with withdrawal, uncomplicated (principal); F11.23 Opioid dependence with withdrawal; F14.20 Cocaine dependence, uncomplicated; F17.210 Nicotine dependence, cigarettes, uncomplicated; F19.24 Other psychoactive substance dependence with psychoactive substance-induced mood disorder; F31.9 Bipolar disorder, unspecified; Z21 Asymptomatic human immunodeficiency virus [HIV] infection status; G47.00 Insomnia, unspecified; K21.9 Gastro-esophageal reflux disease without esophagitis; B18.2 Chronic viral hepatitis C; R63.4 Abnormal weight loss; Z68.1 Body mass index [BMI] 19.9 or less, adult; Z51.81 Encounter for therapeutic drug level monitoring
CPT/HCPCS: 36415; 80053; 81025; 85027; 86780; C9803; U0003; U0005

== ENCOUNTER 2020-12-25 10:12 | Inpatient (IN) | payer OTHER ==
[2020-12-25 10:44] VITALS: BMI 17.3
[2020-12-25] MEDS ORDERED: diazePAM 5 MG TABLET PO PRN (11:43)
[2020-12-25] MEDS ORDERED: methaDONE HCL 10 MG TABLET (FOR DETOX USE ONLY) PO ONE (11:43)
[2020-12-25] MEDS ORDERED: NICOTINE 10 MG CARTRIDGE (INHALER) IH PRN (11:43)
[2020-12-25] MEDS ORDERED: MAGNESIUM HYDROX 2400MG/30ML ORAL SUSPENSION 30 ML CUP PO PRN (11:43)
[2020-12-25] MEDS ORDERED: IBUPROFEN 400 MG TABLET (FP) PO PRN (11:43)
[2020-12-25] MEDS ORDERED: clonazePAM 0.5 MG ODT TABLETS SL PRN (11:43)
[2020-12-25] MEDS ORDERED: ONDANSETRON *ODT* 4 MG TABLET SL PRN (11:43)
[2020-12-25] MEDS ORDERED: MAG HYDROX/AL HYDROX/SIMETH 30 ML UNIT-DOSE CUP PO PRN (11:43)
[2020-12-25] MEDS ORDERED: ACETAMINOPHEN 325 MG TABLET (FP) PO PRN ×2 (11:43)
[2020-12-25] MEDS ORDERED: MAGNESIUM CITRATE 300 ML BOTTLE PO PRN (11:43)
[2020-12-25] MEDS ORDERED: MENTHOL/PHENOL 1 EACH UD MM PRN (11:43)
[2020-12-25] MEDS ORDERED: cloNIDine HCL 0.1 MG TABLET PO PRN (11:43)
[2020-12-25] MEDS: PRENATAL VITAMINS W/ FOLIC ACID TABLET (FP) PO SCH (12:31)
[2020-12-25] MEDS: diazePAM 5 MG TABLET PO SCH ×3 (12:31→22:44)
[2020-12-25 13:40] LABS: HEMATOCRIT 39.9 % (32.4-45.2); MCH 35.2 pg (25.7-33.7); MEAN CELL VOLUME 100.4 fl (80-96); MEAN PLT VOLUME 8.4 fl (7.5-11.1); PLATELET COUNT 144 10^3/uL (134-434); RBC 3.98 M/mm3 (3.60-5.2); RDW 12.8 % (11.6-15.6); WHITE BLOOD COUNT 3.4 K/mm3 (4.0-10.0)
[2020-12-25 13:53] LABS: BLOOD UREA NITROGEN 13.4 mg/dL (7-18); CALCIUM 8.4 mg/dL (8.5-10.1)
[2020-12-25 13:57] LABS: CREATININE 0.8 mg/dL (0.55-1.3)
[2020-12-25 13:58] LABS: BILIRUBIN,TOTAL 0.7 mg/dL (0.2-1); TOT PROT 7.2 g/dl (6.4-8.2)
[2020-12-25] MEDS: hydrOXYzine PAMOATE 25 MG CAPSULE (FP) PO SCH ×3 (14:23→22:45)
[2020-12-25] MEDS: BISMUTH SUBSALICYLATE 262 MG/15 ML BTL PO PRN (22:10)
[2020-12-25] MEDS: MIRTAZAPINE 15 MG TABLET (FP) PO SCH (22:11)
[2020-12-25] MEDS: THIAMINE HCL 100 MG TABLET (FP) PO SCH (22:11)
[2020-12-25] MEDS: risperiDONE 1 MG TABLET PO SCH (22:12)
[2020-12-25] MEDS: METHOCARBAMOL 500 MG TABLET PO PRN (22:12)
[2020-12-25] MEDS: MELATONIN 5 MG TABLETS PO SCH (22:44)
[2020-12-26] MEDS: METHOCARBAMOL 500 MG TABLET PO PRN ×2 (05:42→17:54)
[2020-12-26] MEDS: hydrOXYzine PAMOATE 25 MG CAPSULE (FP) PO SCH ×3 (05:42→13:13)
[2020-12-26] MEDS: diazePAM 5 MG TABLET PO SCH ×4 (05:42→22:36)
[2020-12-26] MEDS ORDERED: methaDONE HCL 10 MG TABLET (FOR DETOX USE ONLY) ONE (09:18)
[2020-12-26] MEDS: PRENATAL VITAMINS W/ FOLIC ACID TABLET (FP) PO SCH (10:15)
[2020-12-26] MEDS: risperiDONE 1 MG TABLET PO SCH ×2 (10:17→22:35)
[2020-12-26] MEDS: BISMUTH SUBSALICYLATE 262 MG/15 ML BTL PO PRN (13:29)
[2020-12-26] MEDS: LIDOCAINE 5% TOPICAL PATCH TP SCH (14:07)
[2020-12-26] MEDS: hydrOXYzine PAMOATE 25 MG CAPSULE (FP) PO PRN ×2 (17:54→22:37)
[2020-12-26] MEDS ORDERED: LIDOCAINE PATCH REMOVAL MC SCH (22:00)
[2020-12-26] MEDS: THIAMINE HCL 100 MG TABLET (FP) PO SCH (22:35)
[2020-12-26] MEDS: MIRTAZAPINE 15 MG TABLET (FP) PO SCH (22:35)
[2020-12-26] MEDS: MELATONIN 5 MG TABLETS PO SCH (22:35)
[2020-12-27] MEDS ORDERED: diazePAM 5 MG TABLET PO SCH (06:00)
[2020-12-27] MEDS: METHOCARBAMOL 500 MG TABLET PO PRN (06:06)
[2020-12-27] MEDS: hydrOXYzine PAMOATE 25 MG CAPSULE (FP) PO PRN (06:06)
[2020-12-27 08:42] VITALS: PULSE 85
[2020-12-27 09:10] VITALS: BP 127/75; TEMP 96.8
[2020-12-27] MEDS ORDERED: methaDONE HCL 10 MG TABLET (FOR DETOX USE ONLY) PO ONE (10:00)
[2020-12-27] MEDS: LIDOCAINE 5% TOPICAL PATCH TP SCH (10:31)
[2020-12-27] MEDS: risperiDONE 1 MG TABLET PO SCH (10:32)
[2020-12-27] MEDS: PRENATAL VITAMINS W/ FOLIC ACID TABLET (FP) PO SCH (10:32)
[2020-12-28] MEDS ORDERED: diazePAM 5 MG TABLET PO SCH (06:00)
[2020-12-29] MEDS ORDERED: diazePAM 5 MG TABLET PO ONE (06:00)
[2020-12-29] MEDS ORDERED: methaDONE HCL 10 MG TABLET (FOR DETOX USE ONLY) PO ONE (10:00)
== END 2020-12-27 11:35 | disposition left against medical advice (07) | DRG 770 ==
LOC: YASAS 10:12 → Y6N 11:56 → Y3N 22:28
PROVIDERS: ADMIT Allergy & Immunology; ATTEND Allergy & Immunology
PROC: HZ2ZZZZ Detoxification Services for Substance Abuse Treatment (ICD-10-PCS; principal; 2020-12-25)
DX: F10.230 Alcohol dependence with withdrawal, uncomplicated (principal); F11.23 Opioid dependence with withdrawal; F14.20 Cocaine dependence, uncomplicated; F17.210 Nicotine dependence, cigarettes, uncomplicated; F19.282 Other psychoactive substance dependence with psychoactive substance-induced sleep disorder; F31.9 Bipolar disorder, unspecified; F19.24 Other psychoactive substance dependence with psychoactive substance-induced mood disorder; Z21 Asymptomatic human immunodeficiency virus [HIV] infection status; B18.2 Chronic viral hepatitis C; K21.9 Gastro-esophageal reflux disease without esophagitis; Z62.810 Personal history of physical and sexual abuse in childhood; R63.4 Abnormal weight loss; Z68.1 Body mass index [BMI] 19.9 or less, adult; Z91.410 Personal history of adult physical and sexual abuse; Z51.81 Encounter for therapeutic drug level monitoring
CPT/HCPCS: 36415; 80053; 81025; 85027; 86780; C9803; J2794; U0003; U0005

== ENCOUNTER 2021-01-19 09:27 | Inpatient (IN) | payer OTHER ==
[2021-01-19 10:09] VITALS: BMI 17.4
[2021-01-19] MEDS ORDERED: MAG HYDROX/AL HYDROX/SIMETH 30 ML UNIT-DOSE CUP PO PRN (11:19)
[2021-01-19] MEDS ORDERED: MAGNESIUM HYDROX 2400MG/30ML ORAL SUSPENSION 30 ML CUP PO PRN (11:19)
[2021-01-19] MEDS ORDERED: methaDONE HCL 10 MG TABLET (FOR DETOX USE ONLY) PO ONE (11:19)
[2021-01-19] MEDS ORDERED: MENTHOL/PHENOL 1 EACH UD MM PRN (11:19)
[2021-01-19] MEDS ORDERED: IBUPROFEN 400 MG TABLET (FP) PO PRN (11:19)
[2021-01-19] MEDS ORDERED: NICOTINE 10 MG CARTRIDGE (INHALER) IH PRN (11:19)
[2021-01-19] MEDS ORDERED: diazePAM 5 MG TABLET PO PRN (11:19)
[2021-01-19] MEDS ORDERED: cloNIDine HCL 0.1 MG TABLET PO PRN (11:19)
[2021-01-19] MEDS ORDERED: clonazePAM 0.5 MG ODT TABLETS SL PRN (11:19)
[2021-01-19] MEDS ORDERED: MAGNESIUM CITRATE 300 ML BOTTLE PO PRN (11:19)
[2021-01-19] MEDS ORDERED: ONDANSETRON *ODT* 4 MG TABLET SL PRN (11:19)
[2021-01-19] MEDS ORDERED: NICOTINE POLACRILEX 2 MG GUM BUC PRN (11:19)
[2021-01-19] MEDS ORDERED: BISMUTH SUBSALICYLATE 524 MG/30 ML PO PRN (11:19)
[2021-01-19] MEDS ORDERED: ACETAMINOPHEN 325 MG TABLET (FP) PO PRN ×2 (11:19)
[2021-01-19] MEDS ORDERED: methaDONE HCL 10 MG TABLET (FOR DETOX USE ONLY) ONE (15:52)
[2021-01-19] MEDS: hydrOXYzine PAMOATE 25 MG CAPSULE (FP) PO SCH ×3 (15:55→22:16)
[2021-01-19] MEDS: diazePAM 5 MG TABLET PO SCH ×2 (17:54→22:17)
[2021-01-19] MEDS: METHOCARBAMOL 500 MG TABLET PO PRN (17:55)
[2021-01-19] MEDS: MELATONIN 5 MG TABLETS PO SCH (22:15)
[2021-01-19] MEDS: THIAMINE HCL 100 MG TABLET (FP) PO SCH (22:16)
[2021-01-20] MEDS: diazePAM 5 MG TABLET PO SCH ×4 (06:13→22:20)
[2021-01-20] MEDS: METHOCARBAMOL 500 MG TABLET PO PRN ×2 (06:14→17:44)
[2021-01-20] MEDS: hydrOXYzine PAMOATE 25 MG CAPSULE (FP) PO SCH ×5 (06:14→22:20)
[2021-01-20] MEDS ORDERED: methaDONE HCL 10 MG TABLET (FOR DETOX USE ONLY) ONE (09:18)
[2021-01-20] MEDS: PRENATAL VITAMINS W/ FOLIC ACID TABLET (FP) PO SCH (10:32)
[2021-01-20] MEDS: NICOTINE 21 MG/24 HOURS TOPICAL PATCH TD SCH (10:35)
[2021-01-20 10:42] LABS: ALBUMIN 2.9 g/dl (3.4-5.0); CALCIUM 8.8 mg/dL (8.5-10.1)
[2021-01-20 10:43] LABS: BLOOD UREA NITROGEN 8.5 mg/dL (7-18)
[2021-01-20 10:44] LABS: HEMATOCRIT 41.4 % (32.4-45.2); MCHC 33.7 g/dl (32.0-36.0); MEAN CELL VOLUME 100.9 fl (80-96); MEAN PLT VOLUME 8.3 fl (7.5-11.1); PLATELET COUNT 153 10^3/uL (134-434); RDW 13.5 % (11.6-15.6); WHITE BLOOD COUNT 2.7 K/mm3 (4.0-10.0)
[2021-01-20 10:46] LABS: CREATININE 0.8 mg/dL (0.55-1.3)
[2021-01-20 10:47] LABS: BILIRUBIN,TOTAL 0.8 mg/dL (0.2-1); TOT PROT 7.3 g/dl (6.4-8.2)
[2021-01-20] MEDS: risperiDONE 1 MG TABLET PO SCH ×2 (12:10→22:19)
[2021-01-20] MEDS ORDERED: MIRTAZAPINE 15 MG TABLET (FP) PO SCH (22:00)
[2021-01-20] MEDS: MELATONIN 5 MG TABLETS PO SCH (22:19)
[2021-01-20] MEDS: THIAMINE HCL 100 MG TABLET (FP) PO SCH (22:20)
[2021-01-21] MEDS ORDERED: diazePAM 5 MG TABLET PO SCH (06:00)
[2021-01-21] MEDS: hydrOXYzine PAMOATE 25 MG CAPSULE (FP) PO SCH ×2 (06:53→10:16)
[2021-01-21] MEDS: METHOCARBAMOL 500 MG TABLET PO PRN (06:54)
[2021-01-21 09:13] VITALS: BP 120/83; PULSE 77; TEMP 96.4
[2021-01-21] MEDS ORDERED: methaDONE HCL 10 MG TABLET (FOR DETOX USE ONLY) PO ONE (10:00)
[2021-01-21] MEDS: NICOTINE 21 MG/24 HOURS TOPICAL PATCH TD SCH (10:16)
[2021-01-21] MEDS: risperiDONE 1 MG TABLET PO SCH (10:16)
[2021-01-21] MEDS: PRENATAL VITAMINS W/ FOLIC ACID TABLET (FP) PO SCH (10:17)
[2021-01-22] MEDS ORDERED: diazePAM 5 MG TABLET PO SCH (06:00)
[2021-01-23] MEDS ORDERED: diazePAM 5 MG TABLET PO ONE (06:00)
[2021-01-23] MEDS ORDERED: methaDONE HCL 10 MG TABLET (FOR DETOX USE ONLY) PO ONE (10:00)
== END 2021-01-21 12:20 | disposition left against medical advice (07) | DRG 770 ==
LOC: YASAS 09:27 → Y3N 15:02
PROVIDERS: ADMIT Allergy & Immunology; ATTEND Allergy & Immunology
PROC: HZ2ZZZZ Detoxification Services for Substance Abuse Treatment (ICD-10-PCS; principal; 2021-01-19)
DX: F11.23 Opioid dependence with withdrawal (principal); F10.230 Alcohol dependence with withdrawal, uncomplicated; F14.20 Cocaine dependence, uncomplicated; F17.210 Nicotine dependence, cigarettes, uncomplicated; F31.9 Bipolar disorder, unspecified; F19.282 Other psychoactive substance dependence with psychoactive substance-induced sleep disorder; F19.24 Other psychoactive substance dependence with psychoactive substance-induced mood disorder; F43.10 Post-traumatic stress disorder, unspecified; Z21 Asymptomatic human immunodeficiency virus [HIV] infection status; K21.9 Gastro-esophageal reflux disease without esophagitis; Z62.810 Personal history of physical and sexual abuse in childhood; R63.4 Abnormal weight loss; Z91.410 Personal history of adult physical and sexual abuse; Z86.19 Personal history of other infectious and parasitic diseases
CPT/HCPCS: 36415; 80053; 81025; 85027; 86780; C9803; J2794; U0003; U0005

== ENCOUNTER 2023-08-07 13:17 | Inpatient (IN) | payer OTHER ==
[2023-08-07 13:48] VITALS: BMI 20.5
[2023-08-07] MEDS ORDERED: MAG HYDROX/AL HYDROX/SIMETH 30 ML UNIT-DOSE CUP PO PRN (14:53)
[2023-08-07] MEDS ORDERED: ONDANSETRON *ODT* 4 MG TABLET SL PRN (14:53)
[2023-08-07] MEDS ORDERED: NALOXONE HCL (KLOXXADO) 8 MG SPRAY NS PRN (14:53)
[2023-08-07] MEDS ORDERED: LOPERAMIDE HCL 2 MG CAPSULE PO PRN (14:53)
[2023-08-07] MEDS ORDERED: NALOXONE HCL 0.4 MG/ML VIAL IM PRN (14:53)
[2023-08-07] MEDS ORDERED: POLYETHYLENE GLYCOL (HEALTHYLAX) 3350 17 GM PACKET PO PRN (14:53)
[2023-08-07] MEDS ORDERED: IBUPROFEN 600 MG TABLET (FP) PO PRN (14:53)
[2023-08-07] MEDS ORDERED: IBUPROFEN 400 MG TABLET (FP) PO PRN (14:53)
[2023-08-07] MEDS ORDERED: NICOTINE POLACRILEX 2 MG GUM BUC PRN (14:53)
[2023-08-07] MEDS ORDERED: P-EPHED 60MG/TRIPROLIDI 2.5MG TABLET PO PRN (14:53)
[2023-08-07] MEDS ORDERED: BENZOCAINE/MENTHOL (CHLORASEPTIC ) LOZENGE MM PRN (14:53)
[2023-08-07] MEDS ORDERED: guaiFENesin 600 MG TABLET.ER (FP) PO PRN (14:53)
[2023-08-07] MEDS ORDERED: BENZONATATE 200 MG CAPSULE PO PRN (14:53)
[2023-08-07] MEDS ORDERED: DICYCLOMINE HCL 10 MG CAPSULE PO PRN (14:53)
[2023-08-07] MEDS ORDERED: MAGNESIUM HYDROX 2400MG/30ML ORAL SUSPENSION 30 ML CUP PO PRN (14:53)
[2023-08-07] MEDS: THIAMINE HCL 100 MG TABLET (FP) PO SCH (22:22)
[2023-08-07] MEDS: MELATONIN 5 MG TABLETS PO SCH (22:22)
[2023-08-07] MEDS: METHOCARBAMOL 500 MG TABLET PO PRN (22:24)
[2023-08-07] MEDS: ACETAMINOPHEN 325 MG TABLET (FP) PO PRN (22:25)
[2023-08-08] MEDS: PRENATAL VITAMINS W/ FOLIC ACID TABLET (FP) PO SCH (10:59)
[2023-08-08 11:15] LABS: HEMATOCRIT 34.7 % (32.4-45.2); HEMOGLOBIN 11.3 GM/dL (10.7-15.3); MCH 31.9 pg (25.7-33.7); MCHC 32.4 g/dl (32.0-36.0); MEAN CELL VOLUME 98.4 fl (80-96); PLATELET COUNT 155 10^3/uL (134-434); RBC 3.52 M/mm3 (3.60-5.2); RDW 13.3 % (11.6-15.6); WHITE BLOOD COUNT 2.2 K/mm3 (4.0-10.0)
[2023-08-08 11:20] LABS: POTASSIUM 4.1 mmol/L (3.5-5.1)
[2023-08-08 11:28] LABS: ALBUMIN 2.9 g/dl (3.4-5.0); CALCIUM 8.5 mg/dL (8.5-10.1)
[2023-08-08 11:32] LABS: CREATININE 1.1 mg/dL (0.55-1.3)
[2023-08-08 11:33] LABS: BILIRUBIN,TOTAL 0.4 mg/dL (0.2-1); TOT PROT 6.8 g/dl (6.4-8.2)
[2023-08-08] MEDS: methaDONE HCL 40 MG DISPERSABLE TABLET PO ONE (12:01)
[2023-08-08] MEDS: BISMUTH SUBSALICYLATE 524 MG/30 ML PO PRN (22:38)
[2023-08-09] MEDS: methaDONE HCL 40 MG DISPERSABLE TABLET PO SCH (10:05)
[2023-08-09] MEDS: hydrOXYzine PAMOATE 25 MG CAPSULE (FP) PO PRN (10:11)
[2023-08-09] MEDS ORDERED: diazePAM 5 MG TABLET PO PRN (10:26)
[2023-08-09] MEDS: diazePAM 5 MG TABLET PO SCH (11:50)
[2023-08-09] MEDS: risperiDONE 1 MG TABLET PO SCH (22:22)
[2023-08-09] MEDS: MIRTAZAPINE 15 MG TABLET (FP) PO SCH (22:22)
[2023-08-11] MEDS: diazePAM 5 MG TABLET PO SCH (05:38)
[2023-08-12] MEDS: diazePAM 5 MG TABLET PO SCH (05:25)
[2023-08-12] MEDS ORDERED: ALBUTEROL SO4 HFA INHALER IH SCH (13:15)
[2023-08-12] MEDS: ALBUTEROL SO4 HFA INHALER IH SCH (16:35)
[2023-08-13] MEDS: diazePAM 5 MG TABLET PO ONE (05:47)
[2023-08-13 09:34] VITALS: BP 114/73; PULSE 83; RESP 16; TEMP 97.8
== END 2023-08-13 11:31 | disposition home or self-care (01) | DRG 773 ==
LOC: YASAS 13:17 → Y3N 16:00
PROVIDERS: ADMIT Allergy & Immunology; ATTEND Surgery
PROC: HZ2ZZZZ Detoxification Services for Substance Abuse Treatment (ICD-10-PCS; principal; 2023-08-07)
DX: F10.230 Alcohol dependence with withdrawal, uncomplicated (principal); F14.20 Cocaine dependence, uncomplicated; F11.20 Opioid dependence, uncomplicated; F17.210 Nicotine dependence, cigarettes, uncomplicated; F31.9 Bipolar disorder, unspecified; F19.24 Other psychoactive substance dependence with psychoactive substance-induced mood disorder; F43.10 Post-traumatic stress disorder, unspecified; Z21 Asymptomatic human immunodeficiency virus [HIV] infection status; G47.00 Insomnia, unspecified; Z62.810 Personal history of physical and sexual abuse in childhood; Z91.410 Personal history of adult physical and sexual abuse; Z63.8 Other specified problems related to primary support group; Z63.0 Problems in relationship with spouse or partner; Z86.19 Personal history of other infectious and parasitic diseases; Z91.199 Patient's noncompliance with other medical treatment and regimen due to unspecified reason
CPT/HCPCS: 36415; 80053; 81025; 85027; 86780; 93005; 93010